=== PATIENT | male | born 1955 | race Caucasian/White ===

== ENCOUNTER 2017-03-07 06:26 | Inpatient (IN) | payer OTHER ==
[~2017-03-07] VITALS: Ht 182.9 cm; Wt 90.9 kg
[~2017-03-07 06:26] MED LIST: CIPRO250 MG PO; FLO4 PO; LEVAQUIN750 MG PO; PRI20 PO; PROAIR HFA0.09 MG/A1 INH; PROS5 PO
[2017-03-07 07:32] LABS: BASOPHIL % 0.5 % (0-2); PLATELET COUNT 209 x10^3mcL (130-400)
[2017-03-07 07:33] LABS: RED CELL DISTRIBUTION WIDTH 16.4 % (11.5-14.5)
[2017-03-07 08:07] LABS: UA SPECIFIC GRAVITY 1.025 (1.005-1.035); microscopic required? YES
[2017-03-07 08:09] LABS: ALBUMIN 3.7 g/dL (3.4-5.0); ALKALINE PHOSPHATASE 77 U/L (46-116); ALT/SGPT 18 U/L (16-63); AMYLASE 99 U/L (25-115); AST/SGOT 17 U/L (15-37); BILIRUBIN TOTAL 0.3 mg/dL (0.20-1.00); CARBON DIOXIDE 28.6 mmol/L (21-32); CHLORIDE SERUM 108 mmol/L (98-107); CREATININE SERUM 1.1 mg/dL (0.7-1.3); GFR1 > 60 mL/min; GLUCOSE SERUM 133 mg/dL (74-106); LIPASE 210 IU/L (73-393); POTASSIUM SERUM 4.2 mmol/L (3.5-5.1); SODIUM SERUM 144 mmol/L (136-145); TOTAL PROTEIN, SERUM 6.9 g/dL (6.4-8.2)
[2017-03-07 08:09] LABS: urine erythrocyte 3+ (NEGATIVE)
[2017-03-07 10:38] VITALS: BP 150/69
[2017-03-07 10:58] LABS: CHOLESTEROL/HDL RATIO 2.7
[2017-03-07 11:04] LABS: FREE T4 0.98 ng/dL (0.76-1.46); FREE THYROXINE INDEX 2.5 ug/dL (1.4-4.5); T4(THYROXINE) 8.2 ug/dL (4.7-13.3)
[2017-03-07 11:08] LABS: PHOSPHOROUS 3.6 mg/dL (2.5-4.9)
[2017-03-07 12:02] LABS: T3 TOTAL 1.3 ng/mL
[2017-03-07 12:09] LABS: AMPHETAMINE QUAL UR NONE DETECTED (NEG <=1000)
[2017-03-07 12:45] VITALS: BP 131/82
[2017-03-07 16:50] VITALS: BP 153/93
[2017-03-07 19:58] LABS: BASOPHIL % 0.4 % (0-2); PLATELET COUNT 191 x10^3mcL (130-400)
[2017-03-07 20:03] LABS: RED CELL DISTRIBUTION WIDTH 16.7 % (11.5-14.5)
[2017-03-07 20:47] VITALS: BP 111/62
[2017-03-08 05:47] VITALS: BP 136/76
[2017-03-08 06:06] LABS: BASOPHIL % 0.3 % (0-2); PLATELET COUNT 174 x10^3mcL (130-400)
[2017-03-08 06:18] LABS: CARBON DIOXIDE 29.7 mmol/L (21-32); CHLORIDE SERUM 109 mmol/L (98-107); CREATININE SERUM 0.8 mg/dL (0.7-1.3); GFR1 > 60 mL/min; GLUCOSE SERUM 119 mg/dL (74-106); PHOSPHOROUS 2.5 mg/dL (2.5-4.9); POTASSIUM SERUM 4.3 mmol/L (3.5-5.1); SODIUM SERUM 144 mmol/L (136-145)
[2017-03-08 07:02] LABS: RED CELL DISTRIBUTION WIDTH 16.6 % (11.5-14.5)
[2017-03-08 09:15] VITALS: BP 146/82
[2017-03-08 15:43] VITALS: BP 138/76
[2017-03-08 17:59] VITALS: BP 110/74
[2017-03-08 22:11] VITALS: BP 98/63
[2017-03-09 06:17] VITALS: BP 136/50
[2017-03-09 06:53] LABS: BASOPHIL % 0.1 % (0-2); PLATELET COUNT 164 x10^3mcL (130-400)
[2017-03-09 06:54] LABS: CHLORIDE SERUM 108 mmol/L (98-107); CREATININE SERUM 0.8 mg/dL (0.7-1.3); GFR1 > 60 mL/min; GLUCOSE SERUM 112 mg/dL (74-106); POTASSIUM SERUM 4.4 mmol/L (3.5-5.1); SODIUM SERUM 140 mmol/L (136-145)
[2017-03-09 07:09] LABS: RED CELL DISTRIBUTION WIDTH 17.1 % (11.5-14.5)
[2017-03-09 10:00] VITALS: BP 107/59
[2017-03-09 18:04] VITALS: BP 121/74
[2017-03-09 22:19] VITALS: BP 148/83
[2017-03-10 06:20] VITALS: BP 126/67
[2017-03-10 06:22] LABS: BASOPHIL % 1.4 % (0-2); PLATELET COUNT 161 x10^3mcL (130-400)
[2017-03-10 11:19] VITALS: BP 131/72
[2017-03-10] MEDS ORDERED: PROS5 PO (15:01)
[2017-03-10] MEDS ORDERED: PRI20 PO (15:03)
[2017-03-10] MEDS ORDERED: KEFLEX500 M1 PO (15:08)
[2017-03-10] MEDS ORDERED: LAC PO (15:09)
[2017-03-10 16:10] VITALS: BP 131/72
== END 2017-03-10 18:18 | disposition home or self-care (01) | DRG 482 ==
LOC: ED 06:26 → DU 09:56 → MU 09:56 → DU 10:23 → MU 03-09 11:46
PROVIDERS: Emergency Medicine; Family Medicine; Urology; ADMIT Family Medicine
PROC: 0W3R4ZZ Control Bleeding in Genitourinary Tract, Percutaneous Endoscopic Approach (ICD-10-PCS; 2017-03-08)
PROC: 0TCB8ZZ Extirpation of Matter from Bladder, Via Natural or Artificial Opening Endoscopic (ICD-10-PCS; 2017-03-08)
PROC: 0VT08ZZ Resection of Prostate, Via Natural or Artificial Opening Endoscopic (ICD-10-PCS; principal; 2017-03-08 11:00)
DX: N40.1 Benign prostatic hyperplasia with lower urinary tract symptoms (principal); N17.0 Acute kidney failure with tubular necrosis; N13.8 Other obstructive and reflux uropathy; R33.8 Other retention of urine; R31.0 Gross hematuria; D64.9 Anemia, unspecified; Z68.27 Body mass index [BMI] 27.0-27.9, adult
CPT/HCPCS: 80307; 83880; 84439; J0690; J0696; J2175; J2250; J2270; J2405; J2704; J3010; J3490; J7030; J7120; Q0092; Q9967

== ENCOUNTER 2018-03-10 09:38 | Inpatient (IN) | payer OTHER ==
[~2018-03-10] VITALS: Ht 182.9 cm; Wt 95.9 kg
[~2018-03-10 09:38] MED LIST changes: +KEFLEX500 M1 PO; +LAC PO
[2018-03-10 09:44] VITALS: Ht 182.9 cm; Wt 95.9 kg
[2018-03-10 10:30] LABS: BASOPHIL % 0.3 % (0-2); PLATELET COUNT 192 x10^3mcL (130-400)
[2018-03-10 10:33] LABS: RED CELL DISTRIBUTION WIDTH 18.6 % (11.5-14.5)
[2018-03-10 10:35] LABS: rbc morphology (normal/abnorm) ABNORMAL (NORMAL)
[2018-03-10 10:56] LABS: CALCIUM 8.5 mg/dL (8.5-10.1); CARBON DIOXIDE 30.4 mmol/L (21-32); CHLORIDE SERUM 104 mmol/L (98-107); GFR1 > 60 mL/min; GLUCOSE SERUM 104 mg/dL (74-106); POTASSIUM SERUM 4.1 mmol/L (3.5-5.1); SODIUM SERUM 140 mmol/L (136-145)
[2018-03-10 11:01] LABS: ALKALINE PHOSPHATASE 73 U/L (46-116); AST/SGOT 20 U/L (15-37); BILIRUBIN TOTAL 0.38 mg/dL (0.20-1.00); TOTAL PROTEIN, SERUM 6.6 g/dL (6.4-8.2)
[2018-03-10 11:07] LABS: ALBUMIN 3.3 g/dL (3.4-5.0)
[2018-03-10 12:02] LABS: UA SPECIFIC GRAVITY >=1.030 (1.005-1.035); microscopic required? YES; urine erythrocyte TRACE (NEGATIVE)
[2018-03-10 12:29] LABS: T3 TOTAL 1.11 ng/mL
[2018-03-10 12:33] LABS: CHOLESTEROL/HDL RATIO 2.7; MAGNESIUM 2.2 mg/dL (1.8-2.4); PHOSPHOROUS 3.1 mg/dL (2.5-4.9)
[2018-03-10 13:00] LABS: ALT/SGPT 14 U/L (16-63)
[2018-03-10 13:19] VITALS: BP 152/93
[2018-03-10 15:18] LABS: FREE T4 0.95 ng/dL (0.76-1.46); FREE THYROXINE INDEX 2.5 ug/dL (1.4-4.5); T4(THYROXINE) 7.3 ug/dL (4.7-13.3)
[2018-03-10 16:51] VITALS: BP 133/62
[2018-03-10 20:14] VITALS: BP 137/71
[2018-03-11 05:36] VITALS: BP 144/80
[2018-03-11 06:28] LABS: BASOPHIL % 0.2 % (0-2); PLATELET COUNT 177 x10^3mcL (130-400)
[2018-03-11 06:38] LABS: CALCIUM 8.2 mg/dL (8.5-10.1); CARBON DIOXIDE 28.3 mmol/L (21-32); CHLORIDE SERUM 108 mmol/L (98-107); CREATININE SERUM 0.8 mg/dL (0.7-1.3); GFR1 > 60 mL/min; GLUCOSE SERUM 112 mg/dL (74-106); POTASSIUM SERUM 4.7 mmol/L (3.5-5.1); SODIUM SERUM 143 mmol/L (136-145)
[2018-03-11 06:41] LABS: RED CELL DISTRIBUTION WIDTH 18.2 % (11.5-14.5)
[2018-03-11 06:50] LABS: IRON 48 ug/dL (65-170); TOTAL IRON BINDING CAPACITY 310 ug/dL (250-450)
[2018-03-11 09:18] VITALS: BP 158/78
[2018-03-11] MEDS ORDERED: FLO4 PO (10:30)
[2018-03-11] MEDS ORDERED: PROS5 PO (10:31)
[2018-03-11 12:42] VITALS: BP 137/80
[2018-03-11 16:29] VITALS: BP 147/81
[2018-03-11 17:08] VITALS: BP 147/81
== END 2018-03-11 17:50 | disposition home or self-care (01) | DRG 501 ==
LOC: ED 09:38 → DU 11:27
PROVIDERS: Emergency Medicine; Family Medicine
DX: N40.1 Benign prostatic hyperplasia with lower urinary tract symptoms (principal); N17.0 Acute kidney failure with tubular necrosis; E44.1 Mild protein-calorie malnutrition; R31.9 Hematuria, unspecified; R73.03 Prediabetes; K40.20 Bilateral inguinal hernia, without obstruction or gangrene, not specified as recurrent; I45.10 Unspecified right bundle-branch block; E66.3 Overweight; Z68.28 Body mass index [BMI] 28.0-28.9, adult
CPT/HCPCS: 83880; 84439; J0696; J1885; J3010; J7030; Q0092; Q9967

== ENCOUNTER 2018-04-08 06:41 | Emergency (ER) | payer OTHER ==
[~2018-04-08] VITALS: Ht 182.9 cm; Wt 94.8 kg
[2018-04-08 06:48] VITALS: Ht 182.9 cm; Wt 94.8 kg
[2018-04-08 07:45] VITALS: BP 147/73
== END 2018-04-08 07:46 | disposition home or self-care (01) ==
LOC: ED 06:41
DX: K40.90 Unilateral inguinal hernia, without obstruction or gangrene, not specified as recurrent (principal)

== ENCOUNTER 2019-03-10 08:52 | Emergency (ER) | payer OTHER ==
[~2019-03-10] VITALS: Ht 182.9 cm; Wt 97.1 kg
[2019-03-10 08:59] VITALS: Ht 182.9 cm; Wt 97.1 kg
[2019-03-10 10:57] LABS: microscopic required? YES; urine erythrocyte 3+ (NEGATIVE)
[2019-03-10 13:06] VITALS: BP 144/89
== END 2019-03-10 13:06 | disposition home or self-care (01) ==
LOC: ED 08:52
PROVIDERS: Emergency Medicine
DX: R31.9 Hematuria, unspecified (principal); N39.0 Urinary tract infection, site not specified; N40.0 Benign prostatic hyperplasia without lower urinary tract symptoms; Z98.890 Other specified postprocedural states
CPT/HCPCS: 76770

== ENCOUNTER 2019-12-05 12:34 | Emergency (ER) | payer OTHER ==
[~2019-12-05] VITALS: Ht 182.9 cm; Wt 96.7 kg
[2019-12-05 12:55] VITALS: Ht 182.9 cm; Wt 96.7 kg
[2019-12-05 14:25] VITALS: BP 147/108
== END 2019-12-05 14:26 | disposition home or self-care (01) ==
LOC: ED 12:34
DX: L60.0 Ingrowing nail (principal); L08.9 Local infection of the skin and subcutaneous tissue, unspecified; Z98.890 Other specified postprocedural states
CPT/HCPCS: J2001

== ENCOUNTER 2019-12-08 07:37 | Emergency (ER) | payer OTHER ==
[~2019-12-08] VITALS: Ht 182.9 cm; Wt 95.3 kg
[2019-12-08 07:43] VITALS: Ht 182.9 cm; Wt 95.3 kg
[2019-12-08 08:28] LABS: BASOPHIL % 0.2 % (0-2); PLATELET COUNT 182 x10^3mcL (130-400)
[2019-12-08 08:54] LABS: CARBON DIOXIDE 30 mmol/L (21-32); CHLORIDE SERUM 107 mmol/L (98-107); GFR1 > 60 mL/min; GLUCOSE SERUM 115 mg/dL (74-106); POTASSIUM SERUM 3.9 mmol/L (3.5-5.1); SODIUM SERUM 143 mmol/L (136-145); TOTAL PROTEIN, SERUM 6.6 g/dL (6.4-8.2)
[2019-12-08 08:55] LABS: ALBUMIN 3.5 g/dL (3.4-5.0); ALKALINE PHOSPHATASE 73 U/L (46-116); ALT/SGPT 14 U/L (16-63); AST/SGOT 17 U/L (15-37); BILIRUBIN TOTAL 0.62 mg/dL (0.20-1.00); CALCIUM 8.7 mg/dL (8.5-10.1)
[2019-12-08 09:41] VITALS: BP 132/71
== END 2019-12-08 10:51 | disposition home or self-care (01) ==
LOC: ED 07:37
PROVIDERS: Emergency Medicine
DX: M54.41 Lumbago with sciatica, right side (principal); R31.9 Hematuria, unspecified; Z98.890 Other specified postprocedural states
CPT/HCPCS: J1885; J2405

== ENCOUNTER 2019-12-09 10:12 | Emergency (ER) | payer OTHER ==
[~2019-12-09] VITALS: Ht 182.9 cm; Wt 96.2 kg
[2019-12-09 10:50] VITALS: Ht 182.9 cm; Wt 96.2 kg
[2019-12-09 14:20] LABS: UA SPECIFIC GRAVITY >=1.030 (1.005-1.035); microscopic required? YES; urine erythrocyte 3+ (NEGATIVE)
[2019-12-09 14:45] VITALS: BP 144/55
== END 2019-12-09 14:45 | disposition home or self-care (01) ==
LOC: ED 10:12
PROVIDERS: Emergency Medicine
DX: M54.41 Lumbago with sciatica, right side (principal); Z98.890 Other specified postprocedural states
CPT/HCPCS: J1885

== ENCOUNTER 2019-12-10 11:44 | Emergency (ER) | payer OTHER ==
[~2019-12-10] VITALS: Ht 182.9 cm; Wt 95.3 kg
[2019-12-10 11:58] VITALS: Ht 182.9 cm; Wt 95.3 kg
[2019-12-10 13:32] VITALS: BP 158/89
== END 2019-12-10 13:32 | disposition home or self-care (01) ==
LOC: ED 11:44
DX: M25.561 Pain in right knee (principal); M25.562 Pain in left knee; M19.90 Unspecified osteoarthritis, unspecified site; N40.0 Benign prostatic hyperplasia without lower urinary tract symptoms; Z98.890 Other specified postprocedural states

== ENCOUNTER 2020-04-30 21:04 | Emergency (ER) | payer OTHER ==
[~2020-04-30] VITALS: Ht 182.9 cm; Wt 90.8 kg
[2020-04-30 22:10] LABS: BASOPHIL % 0.3 % (0-2); PLATELET COUNT 210 x10^3mcL (130-400); RED CELL DISTRIBUTION WIDTH 13.7 % (11.5-14.5)
[2020-04-30 22:21] LABS: CALCIUM 8.3 mg/dL (8.5-10.1); CARBON DIOXIDE 26.8 mmol/L (21-32); CHLORIDE SERUM 102 mmol/L (98-107); CREATININE SERUM 1.1 mg/dL (0.7-1.3); GFR1 > 60 mL/min; GLUCOSE SERUM 157 mg/dL (74-106); POTASSIUM SERUM 3.6 mmol/L (3.5-5.1); SODIUM SERUM 139 mmol/L (136-145)
[2020-04-30 22:26] LABS: ALBUMIN 3.8 g/dL (3.4-5.0); ALKALINE PHOSPHATASE 74 U/L (46-116); ALT/SGPT 14 U/L (16-63); AST/SGOT 19 U/L (15-37); BILIRUBIN TOTAL 0.5 mg/dL (0.20-1.00); LIPASE 151 IU/L (73-393); TOTAL PROTEIN, SERUM 6.8 g/dL (6.4-8.2)
[2020-05-01 00:08] VITALS: BP 112/78
== END 2020-05-01 00:08 | disposition home or self-care (01) ==
LOC: ED 21:04
PROVIDERS: Emergency Medicine
DX: R11.2 Nausea with vomiting, unspecified (principal); T44.1X5A Adverse effect of other parasympathomimetics [cholinergics], initial encounter; T39.315A Adverse effect of propionic acid derivatives, initial encounter; Y92.89 Other specified places as the place of occurrence of the external cause
CPT/HCPCS: 36415; J8597; Q0162